=== PATIENT | female | born 1970 | race Caucasian/White ===

== ENCOUNTER 2022-08-28 07:01 | Day surgery (SDC) | payer SELFPAY, OTHER ==
[2022-08-28] VITALS (7 sets, daily range): BP systolic 100–146; BP diastolic 56–73; PULSE 56–73; RESP 16; TEMP 36.1–36.4; O2SAT 96–100; BMI 30.4
--- NOTE | 2022-08-28 | EMB_PTH ---
PATIENT: LINDA JUARES LOC: [facility] [place] U#:[id number] AGE/SX: 52/F ROOM: RE08/28/[address]: Dr. Chelsy Juares, : 1970 BED: DIS: 08/28/2022 SPEC #: [id number] RECD: 08/28/22 12:38 STATUS: NEIDA WERNER #: [id number] DANIELLE: 08/28/22 00:[address]: Chelsy Juares DEPT: SURGICAL PATHOLOGY RECD BY: Bassam Redman ENTERED: 08/28/22 12:38 SP TYPE: ENDOM BX/C MATTHIEU DR: Dr. Tadeo Santos MD Tissues: Endometrium, NOS Procedures: Surgery Specimen Level IV HEADER OPERATION: Hysteroscopy, dilation and curettage PRE-OP DIAGNOSIS: Abnormal uterine bleeding TISSUE SUBMITTED: Endometrial curettings MICROSCOPIC DIAGNOSIS Endometrium, curettings: Simple hyperplasia without atypia. Rare fragments of benign squamous mucosa. AM:pipe 08/29/2022 MICROSCOPIC DESCRIPTION Slides are reviewed. GROSS DESCRIPTION Received in fixative is one container labeled with the patient's name and designated endometrial curettings. The specimen consists of multiple irregular fragments of pink-wheatley soft tissue that in aggregate measure 5 x 3 x 0.2 cm. The specimen is totally submitted in two cassettes. / AM:pipe 08/28/2022 TC:5 CPT: 84500
--- NOTE | 2022-08-28 07:06 | HP.PCM.OB_ITS ---
History and Physical Date of Admission: 08/28/22 HPI: 52-year-old female presenting for hysteroscopy, dilation and curettage for abnormal uterine bleeding. Denies headache, vision changes, chest pain or shortness of breath, nausea or vomiting, diarrhea or constipation, fevers or chills. Medical history: Denies Surgical history: Denies Allergies: No known drug allergies Medications: Denies Family history: Noncontributory, no history of issues with anesthesia Social history: Denies tobacco, alcohol, drug use Review of system: Negative otherwise stated above Physical exam BP 127/56, HR 64, RR 16, T 97.4F, 88% RA General: No acute distress HEENT normocephalic, atraumatic Cardiac: Regular rate and rhythm Respiratory: Clear to auscultation bilaterally Abdomen: Soft, nontender nondistended Extremities: No edema Neurologic: Cranial nerves II through XII grossly intact, no focal deficits Musculoskeletal: Strength out of 5 throughout extremities Assessment/plan: 52-year-old female presenting for hysteroscopy, dilation and curettage for abnormal uterine bleeding. All risk, benefits, alternatives discussed with the patient. Risk include but not limited to: Risk of bleeding when transfusion, infection, injury to surrounding tissue including bowel/bladder/uterine perforation, VTE, ICU admission. Patient aware and co nsented.
[2022-08-28 07:54] LABS: Internal QC Validated? YES +Cl - CLEAR BKGD; Pregnancy, Urine Negative Negative
[2022-08-28] MEDS: Lactated Ringers 1,000 ML 15 ML IV (07:56)
[2022-08-28 07:59] LABS: Hematocrit 39.5 % (37-47); Hemoglobin 13.3 g/dL (12.0-15.0); Mean Corp Hgb Conc 33.7 g/dL (32-36); Mean Corpuscular Hgb 30.5 pg (27.0-32.0); Mean Corpuscular Volume 90.6 fL (81-99); Mean Platelet Vol. 9.5 fl (6.2-12.0); Platelet Count 330 K/mm3 (150-450); RBC Distribution Width CV 12.5 % (11.6-14.6); RBC Distribution Width SD 41.3 fl (35.1-43.9); Red Blood Count 4.36 M/mm3 (4.2-5.4); White Blood Count 6.2 K/mm3 (4.4-11.0)
--- NOTE | 2022-08-28 09:13 | OP.PCM_ITS ---
Report of Operation Date of Procedure: 08/28/22 Pre-Operative Diagnosis: Abnormal uterine bleeding Post-Operative Diagnosis: Abnormal uterine bleeding Surgery/Procedure Performed:: Hysteroscopy, dilation and curettage Description of Surgical Findings:: Moderate uterine descensus. Normal external genitalia. Normal-appearing cervix. Thickened endometrial lining, no polyps or fibroids. Type of Anesthesia: MAC Specimen's removed: Endometrial curettings Estimated Blood Loss (mL): 5cc Fluids Replaced: 600cc Description of Procedure: Indication/risk/benefits: 52-year-old female with irregular and abnormal uterine bleeding plan for hysteroscopy, dilation curettage. All risk, benefits, alterna tives discussed with patient. Risks include but are not limited to: Risk of bleeding twin transfusion, infection, injury to surrounding tissue including bowel/bladder/uterine perforation, VTE, ICU admission. Patient were consented. Procedure: Patient taken to the operating room placed under MAC anesthesia. Patient placed in the dorsal lithotomy position prepped and draped in the usual sterile fashion. Weighted speculum placed in the posterior vagina and Garcia retractor used to visualize cervix anterior lip the cervix grasped with Allis clamp. Cervix sequentially dilated. Hysteroscope placed through cervical canal and inspection of endometrial cavity completed with findings noted above. Hysteroscope removed. Curettage completed in 360 degree manner. Allis clamp removed, cervix hemostatic. Weighted speculum removed. At the end the procedure all needle, lap, sponge counts were correct. Urine output: None measured. Complications None
--- NOTE | 2022-08-28 09:16 | DCINST_ITS ---
Discharge Instructions Diet Discharge Diet: No restrictions Activity Discharge Activity: Return to Normal Activity and May Shower May resume sexual activity in: 2 weeks Weight Bearing Status: Weight bearing as tolerated Lifting Restrictions: None Dressing / Incision Call your doctor if you observe: Fever of 101 or Higher, Change in Color, Inability to urinate, Using more than 1 pad per hour, Shortness of breath, Dizziness, Swelling in the ankles, Chest pain and Calf discomfort Follow Up Care Please Follow Up With: Chelsy Rae DO When: 1-2 week postoperative visit Test Results: Test results from this visit will be discussed in further detail at your follow- up appointment, if applicable. Discharge Plan Admission Primary Reason for Your Visit: Hysteroscopy, dilation and currettage Attending Provider: Chelsy Rae Primary Care Provider: Tadeo Santos Discharge Orders/Prescriptions Prescriptions: No Action NK Referrals / Follow Up: Tadeo Santos MD [Primary Care Provider] - Disposition Disposition (needs filled in before D/C Order can be placed): Home, Self Care
== END 2022-08-28 11:33 | disposition home or self-care (01) ==
LOC: SDC 07:07 → AC 07:09
PROVIDERS: Anesthesiology; PCP Family Medicine; Referring Provider Student in an Organized Health Care Education/Training Program; Visit Provider Student in an Organized Health Care Education/Training Program
PROC: 0UDB8ZZ Extraction of Endometrium, Via Natural or Artificial Opening Endoscopic (ICD-10-PCS; CPT 58558; principal; 2022-08-28 08:15)
DX: N85.01 Benign endometrial hyperplasia (principal); N93.9 Abnormal uterine and vaginal bleeding, unspecified
CPT/HCPCS: 58558; 00952; 81025; 85027; 86850; 86900; 86901; 88305; J7120; J2405

== ENCOUNTER → 2022-09-12 | Outpatient (CLI) | payer OTHER, SELFPAY | END | disposition home or self-care (01) | LOC: LABSPEC 10:44 | PROVIDERS: PCP Family Medicine; Visit Provider Student in an Organized Health Care Education/Training Program | DX: R30.0 Dysuria (principal) | CPT/HCPCS: 87086; 87088; 87186 ==

== ENCOUNTER → 2022-12-15 | Outpatient (CLI) | payer OTHER, SELFPAY ==
--- NOTE | 2022-12-15 | EMB_PTH ---
PATIENT: LINDA RAE LOC: [facility] U#:[id number] AGE/SX: 52/F ROOM: RE12/15/[address]: Dr. Chelsy Rae DO : 1970 BED: DIS: 12/15/2022 SPEC #: [id number] RECD: 12/15/22 12:09 STATUS: NEIDA WERNER #: [id number] DANIELLE: 12/15/22 00:[address]: Chelsy Rae DEPT: SURGICAL PATHOLOGY RECD BY: Susan Hobbs ENTERED: 12/15/22 13:18 SP TYPE: ENDOM BX/C MATTHIEU DR: Dr. Tadeo Santos MD Tissues: Endometrium, NOS Procedures: Surgery Specimen Level IV HEADER OPERATION: Endometrial biopsy PRE-OP DIAGNOSIS: Benign endometrial hyperplasia TISSUE SUBMITTED: Endometrial biopsy MICROSCOPIC DIAGNOSIS Endometrial biopsy: Scant strips of benign endometrial epithelium. See comment. THEO:pipe 12/16/2022 COMMENT Clinical correlation and appropriate follow up are necessary. MICROSCOPIC DESCRIPTION Slides are reviewed. GROSS DESCRIPTION Received in fixative is one container labeled with the patient's name and designated endometrial biopsy. The specimen consists of a scant amount of soft tissue. The specimen is totally submitted for cell block preparation. / SJ:rg 12/15/2022 TC:4 CPT: 59237
== END | disposition home or self-care (01) ==
LOC: LABSPEC 11:50
PROVIDERS: PCP Family Medicine; Visit Provider Student in an Organized Health Care Education/Training Program
DX: N85.01 Benign endometrial hyperplasia (principal)
CPT/HCPCS: 88305

== ENCOUNTER → 2023-06-15 | Outpatient (CLI) | payer OTHER, SELFPAY ==
--- NOTE | 2023-06-15 | EMB_PTH ---
PATIENT: LINDA JUARES LOC: [facility] U#:[id number] AGE/SX: 53/F ROOM: RE06/15/[address]: Dr. Chelsy Juares, : 1970 BED: DIS: 06/15/2023 SPEC #: [id number] RECD: 06/15/23 13:12 STATUS: NEIDA WERNER #: [id number] DANIELLE: 06/15/23 00:[address]: Chelsy Juares DEPT: SURGICAL PATHOLOGY RECD BY: Susan Hobbs ENTERED: 06/15/23 13:30 SP TYPE: ENDOM BX/C MATTHIEU DR: Dr. Tadeo Santos MD Tissues: Endometrium, NOS Procedures: Surgery Specimen Level IV HEADER OPERATION: Endometrial biopsy PRE-OP DIAGNOSIS: N85.01 TISSUE SUBMITTED: Endometrial biopsy MICROSCOPIC DIAGNOSIS Endometrium, biopsy: Scant strips of benign superficial glandular mucosa. AM:pipe 06/16/2023 MICROSCOPIC DESCRIPTION Slides are reviewed. GROSS DESCRIPTION Received in fixative is one container labeled with the patient's name and designated endometrial biopsy. The specimen consists of multiple minute fragments of light wheatley soft tissue that in aggregate measure 1.0 x 0.3 x <0.1 cm. The specimen is totally submitted in one cassette. / AM:pipe 06/15/2023 TC:5 CPT: 66306
== END | disposition home or self-care (01) ==
LOC: LABSPEC 10:26
PROVIDERS: PCP Family Medicine; Visit Provider Student in an Organized Health Care Education/Training Program
DX: N85.01 Benign endometrial hyperplasia (principal)
CPT/HCPCS: 88305

== ENCOUNTER → 2023-11-02 | Outpatient (CLI) | payer OTHER, SELFPAY ==
--- NOTE | 2023-11-02 | EMB_PTH ---
PATHOLOGY RESULTS PATIENT: LINDA JUARES LOC: [facility] U#:[id number] AGE/SX: 53/F ROOM: RE11/02/[address]: MONALISA Thompson : 1970 BED: DIS: 11/02/2023 SPEC #: [id number] RECD: 11/03/23 08:04 STATUS: NEIDA WERNER #: [id number] DANIELLE: 11/02/23 00:[address]: Nika Simpson NP DEPT: SURGICAL PATHOLOGY RECD BY: Michelle Valencia ENTERED: 11/03/23 08:05 SP TYPE: ENDOM BX/C MATTHIEU DR: Dr. Tadeo Santos MD Tissues: Endometrium, NOS Procedures: Surgery Specimen Level IV HEADER OPERATION: Endometrial biopsy PRE-OP DIAGNOSIS: Abnormal uterine bleeding, on progesterone TISSUE SUBMITTED: Endometrial lining MICROSCOPIC DIAGNOSIS Endometrial biopsy: Fragments of benign endometrial epithelium. Negative for hyperplasia. SJ:pipe 11/04/2023 COMMENT Please make reference to previous specimens ([id number]) endometrium, curettings with diagnosis of simple hyperplasia without atypia and ([id number]) endometrial biopsy with diagnosis of scant strips of benign endometrial epithelium and ([id number]) endometrium, biopsy with diagnosis of scant strips of benign superficial glandular mucosa. MICROSCOPIC DESCRIPTION Slides are reviewed. GROSS DESCRIPTION Received is one container labeled with the patient's name and not further designated. The specimen consists of a scant amount of soft tissue. The specimen is totally submitted for cell block preparation. / SJ:rg 11/03/2023 TC:4 CPT: 52078
== END | disposition home or self-care (01) ==
LOC: LABSPEC 15:08
PROVIDERS: PCP Family Medicine; Referring Provider Nurse Practitioner Women's Health; Visit Provider Nurse Practitioner Women's Health
DX: N93.9 Abnormal uterine and vaginal bleeding, unspecified (principal)
CPT/HCPCS: 88305